=== PATIENT | female | born 1975 | race Caucasian/White ===

== ENCOUNTER 2021-12-13 20:19 | Inpatient (IN) | payer OTHER ==
[~2021-12-13] VITALS: Ht 160 cm; Wt 113.4 kg
[2021-12-13 22:08] LABS: HEMOGLOBIN 13.3 gm/dl (12.3-15.3); RED BLOOD COUNT 4.85 M/UL (4.00-5.10)
[2021-12-13 22:27] LABS: BUN/CREATININE RATIO 27 (0-10)
[2021-12-14 08:26] LABS: HEMOGLOBIN 12.7 gm/dl (12.3-15.3); RED BLOOD COUNT 4.68 M/UL (4.00-5.10); WHITE BLOOD COUNT 5.9 K/UL (4.5-11.0)
[2021-12-14 09:00] LABS: BUN/CREATININE RATIO 27 (0-10)
[2021-12-15 07:28] LABS: HEMOGLOBIN 13.4 gm/dl (12.3-15.3); RED BLOOD COUNT 4.86 M/UL (4.00-5.10)
[2021-12-15 07:30] LABS: WHITE BLOOD COUNT 9.2 K/UL (4.5-11.0)
[2021-12-15 07:44] LABS: BUN/CREATININE RATIO 27 (0-10)
[2021-12-16 06:21] LABS: HEMOGLOBIN 13.6 gm/dl (12.3-15.3); RED BLOOD COUNT 4.99 M/UL (4.00-5.10)
[2021-12-16 06:22] LABS: WHITE BLOOD COUNT 5.8 K/UL (4.5-11.0)
[2021-12-16 06:51] LABS: BUN/CREATININE RATIO 24 (0-10)
[2021-12-17 02:58] LABS: HEMOGLOBIN 14.2 gm/dl (12.3-15.3); RED BLOOD COUNT 5.31 M/UL (4.00-5.10)
[2021-12-17 03:16] LABS: BUN/CREATININE RATIO 26 (0-10)
[2021-12-17] MEDS ORDERED: NOVOLIN N100 UNIT/2 SQ (10:03)
[2021-12-17] MEDS ORDERED: MEROPENEM1 GM IV (10:03)
[2021-12-17] MEDS ORDERED: JARDIANCE25 MG PO (10:03)
[2021-12-17] MEDS ORDERED: METFORMIN HCL1000 MG PO (10:03)
[2021-12-17] MEDS ORDERED: TRAMADOL HCL50 MG PO (10:36)
== END 2021-12-17 19:50 | disposition home or self-care (01) | DRG 600 ==
LOC: ER1 20:19 → M/S 12-14 00:30 → CDU 12-14 00:30 → M/S 12-14 08:58
PROVIDERS: Internal Medicine; Physician Assistant; ADMIT Internal Medicine
DX: N61.1 Abscess of the breast and nipple (principal); Z68.41 Body mass index [BMI] 40.0-44.9, adult; Z20.822 Contact with and (suspected) exposure to COVID-19; E11.9 Type 2 diabetes mellitus without complications; B96.5 Pseudomonas (aeruginosa) (mallei) (pseudomallei) as the cause of diseases classified elsewhere; F17.210 Nicotine dependence, cigarettes, uncomplicated; E66.01 Morbid (severe) obesity due to excess calories; L30.4 Erythema intertrigo; Z91.14 Patient's other noncompliance with medication regimen; Z98.890 Other specified postprocedural states; Z98.891 History of uterine scar from previous surgery; Z88.8 Allergy status to other drugs, medicaments and biological substances; Z79.4 Long term (current) use of insulin
CPT/HCPCS: 36415; 80048; 80053; 80202; 82962; 83036; 83605; 83735; 85025; 87040; 87070; 87077; 87186; 87205; 96365; 96366; 99284; C1751; J1650; J2185; J2270; J3370; J7070